=== PATIENT | male | born 1940 | race African-American/Black ===

== ENCOUNTER 2021-01-15 09:46 | Emergency (ER) | payer OTHER ==
[~2021-01-15] VITALS: Ht 177.8 cm; Wt 90.0 kg
[2021-01-15] MEDS ORDERED: ACETAMINOPHEN 325MG TABLET PO ONE (10:30)
[2021-01-15] MEDS ORDERED: SODIUM CHLORIDE 0.9% 500 ML IV ONE (10:30)
[2021-01-15] MEDS ORDERED: LIDOCAINE 5% PATCH TOP SCH ×2 (10:30)
[2021-01-15 10:52] LABS: BASOPHILS % 0.4 % (0.0-2.0); EOSINOPHILS % 4.7 % (0.0-5.0); HEMATOCRIT. 39.5 % (42.0-52.0); LYMPHOCYTES % 18.6 % (20.0-50.0); MEAN CORPUSCULAR HEMOGLOBIN 28.4 pg (28.0-32.0); MEAN PLATELET VOLUME 6.5 fl (7.4-10.4); MONOCYTES % 6.4 % (2.0-8.0); NEUTROPHILS % 69.9 % (40.0-76.0); PLATELET 224 x1000/uL (130-400)
[2021-01-15 11:01] LABS: CHLORIDE 110 mEq/L (98-107)
[2021-01-15 11:05] LABS: ETHANOL BLOOD < 10 mg/dL
[2021-01-15 13:00] LABS: CLARITY URINE CLEAR (CLEAR); COLOR URINE YELLOW (YELLOW); KETONES URINE NEGATIVE (NEGATIVE); LEUKOCYTE ESTERASE URINE NEGATIVE (NEGATIVE); NITRITE URINE NEGATIVE (NEGATIVE); OCCULT BLOOD URINE NEGATIVE (NEGATIVE); PROTEIN URINE NEGATIVE (NEGATIVE); SPECIFIC GRAVITY URINE 1.013 (1.005-1.030); UROBILINOGEN URINE 0.2 E.U./dL (0.2-1.0)
[2021-01-15 13:06] LABS: *AMPHETAMINES SCREEN URINE NEGATIVE (NEGATIVE); *BARBITURATES SCREEN URINE NEGATIVE (NEGATIVE); *BENZODIAZEPINES SCREEN URINE NEGATIVE (NEGATIVE); METHADONE URINE SCREEN NEGATIVE (NEGATIVE); OPIATES URINE SCREEN NEGATIVE (NEGATIVE)
[2021-01-15 13:07] LABS: CANNABINOID URINE SCREEN NEGATIVE (NEGATIVE); PHENCYCLIDINE URINE SCREEN NEGATIVE (NEGATIVE)
[2021-01-15 13:18] LABS: *COCAINE SCREEN URINE NEGATIVE (NEGATIVE)
[2021-01-15] MEDS ORDERED: BACL-141 MT (13:26)
[2021-01-15] MEDS ORDERED: T3 PO (13:26)
[2021-01-15] MEDS ORDERED: LIDO700A15 TP (13:26)
[2021-01-15 15:00] VITALS: BP 137/82
== END 2021-01-15 15:30 | disposition home or self-care (01) ==
LOC: ER 10:12
DX: S00.83XA Contusion of other part of head, initial encounter (principal); S13.4XXA Sprain of ligaments of cervical spine, initial encounter; I10 Essential (primary) hypertension; E78.00 Pure hypercholesterolemia, unspecified; J45.909 Unspecified asthma, uncomplicated; W17.89XA Other fall from one level to another, initial encounter; Y93.89 Activity, other specified; Y92.89 Other specified places as the place of occurrence of the external cause; Y99.8 Other external cause status
CPT/HCPCS: 36415; 70486; 71045; 80053; 80305; 80320; 81003; 83880; 84484; 85025; 93005; 99285; G0480

== ENCOUNTER 2021-08-07 07:28 | Emergency (ER) | payer OTHER ==
[~2021-08-07] VITALS: Ht 170.2 cm; Wt 75.0 kg
[~2021-08-07 07:28] MED LIST: BACL-141 MT; LIDO700A15 TP; T3 PO
[2021-08-07 08:28] LABS: BASOPHILS % 1.1 % (0.0-2.0); EOSINOPHILS % 2.5 % (0.0-5.0); HEMATOCRIT. 38.6 % (42.0-52.0); HEMOGLOBIN. 12.7 g/dL (14.0-18.0); LYMPHOCYTES % 10.9 % (20.0-50.0); MEAN CORPUSCULAR HEMOGLOBIN 28.3 pg (28.0-32.0); MEAN CORPUSCULAR VOLUME 85.9 fL (80.0-94.0); MEAN PLATELET VOLUME 6.3 fl (7.4-10.4); MONOCYTES % 5.9 % (2.0-8.0); NEUTROPHILS % 79.6 % (40.0-76.0); PLATELET 210 x1000/uL (130-400); RED CELL DISTRIBUTION WIDTH 14.9 % (11.6-14.6)
[2021-08-07 08:40] LABS: PROTHROMBIN TIME 10.9 sec (9.6-11.0)
[2021-08-07 08:51] LABS: CHLORIDE 109 mEq/L (98-107)
[2021-08-07] MEDS ORDERED: SODIUM CHLORIDE 0.9% 1,000 ML IV ONE (09:30)
[2021-08-07] MEDS ORDERED: ACETAMINOPHEN 325MG TABLET PO ONE (10:15)
[2021-08-07 12:38] VITALS: BP 154/79
== END 2021-08-07 12:41 | disposition home or self-care (01) ==
LOC: ER 07:52
DX: R53.1 Weakness (principal); S09.8XXA Other specified injuries of head, initial encounter; J45.909 Unspecified asthma, uncomplicated; E78.00 Pure hypercholesterolemia, unspecified; I10 Essential (primary) hypertension; W18.39XA Other fall on same level, initial encounter; Y93.89 Activity, other specified; Y92.9 Unspecified place or not applicable
CPT/HCPCS: 36415; 70450; 71045; 80053; 83605; 85025; 85610; 93005; 96360; 99285; J7030

== ENCOUNTER 2023-03-31 21:01 | Emergency (ER) | payer OTHER ==
[~2023-03-31] VITALS: Ht 175.3 cm; Wt 83.0 kg
[2023-03-31 21:10] VITALS: O2SAT 100
[2023-03-31 23:00] VITALS: TEMP 98.6
[2023-04-01] MEDS ORDERED: TAM75 MT (01:08)
[2023-04-01 02:11] VITALS: BP 157/78; PULSE 98; RESP 16
== END 2023-04-01 02:20 | disposition home or self-care (01) ==
LOC: ER 21:01
DX: J11.1 Influenza due to unidentified influenza virus with other respiratory manifestations (principal); M25.551 Pain in right hip; J45.909 Unspecified asthma, uncomplicated; E78.00 Pure hypercholesterolemia, unspecified; I10 Essential (primary) hypertension
CPT/HCPCS: 73502; 87804; 99284